=== PATIENT | male | born 1955 | race Caucasian/White ===

== ENCOUNTER 2024-03-11 09:53 | Outpatient (CLI) | payer MEDICARE ==
--- NOTE | 2024-03-11 15:21 | CT Report ---
PROCEDURE: Head WO INDICATIONS: CONCUSSION TECHNIQUE: Noncontrast 4.5 mm thick angled axial sections acquired from the foramen magnum to the vertex. For r adiation dose reduction, the following was used: automated exposure control, adjustment of mA and/or kV according to patient size. COMPARISON: None. FINDINGS: Image quality: Excellent. CSF spaces: Basal cisterns are patent. No extra-axial fluid collections. Ventricles are normal in size and shape. Brain: No midline shift. No intracranial masses or hemorrhage. Selby-white matter interface is norm al. Skull and face: Calvarium and visualized facial bones are intact, without suspicious lesions. Sinuses: Visualized sinuses and mastoids are clear. IMPRESSION: No acute intracranial pathology. No intracranial hemorrhage is seen. Negative for a displaced calvarial fracture. Reviewed by: Vern Casey MD on 03/11/2024 2:19 PM [facility]HAYA Approved by: Vern Casey MD on 03/11/2024 2:19 PM AKJOSE Station ID: [id number]
== END 2024-03-11 09:54 | disposition home or self-care (01) ==
LOC: DI 09:53
PROVIDERS: ATTEND Internal Medicine
DX: S06.0X1A Concussion with loss of consciousness of 30 minutes or less, initial encounter (principal)

== ENCOUNTER 2024-03-23 10:53 | Day surgery (SDC) | payer MEDICARE ==
[2024-03-23] MEDS: LACTATED RINGERS 1,000 ML IV ONE (11:01)
--- NOTE | 2024-03-23 12:04 | ANESTHESIA ---
Pre-Anesthesia VS, & Labs - Diagnosis SCREENING - Procedure COLONOSCOPY Vital Signs: Temp Pulse Resp BP Pulse Ox O2 Flow Rate 36.4 C L 48 L 14 149/79 H 100 03/23/24 11:14 03/23/24 11:14 03/23/24 11:14 03/23/24 11:14 03/23/24 11:14 Height: 6 ft 1 in Weight (kg): 96.8 kg Body Mass Index: 28.1 BMI Classification: Overweight - NPO >8 hours (BOWEL PREP COMPLETED) Home Medications and Allergies Home Medications: Ambulatory Orders Amlodipine Besylate 2.5 mg PO DAILY 03/17/24 Atorvastatin [Lipitor] 20 mg PO QPM 03/17/24 Chlorthalidone 25 mg PO DAILY 03/17/24 Cholecalciferol [Vitamin D3] 25 mcg PO DAILY 03/17/24 Telmisartan 80 mg PO DAILY 03/17/24 Vit A/Vit C/Vit E/Zinc/Copper [Preservision Areds Softgel] 2 each PO DAILY 03/17/24 Amlodipine Besylate 2.5 mg PO DAILY 03/17/24 Atorvastatin [Lipitor] 20 mg PO QPM 03/17/24 Chlorthalidone 25 mg PO DAILY 03/17/24 Cholecalciferol [Vitamin D3] 25 mcg PO DAILY 03/17/24 Telmisartan 80 mg PO DAILY 03/17/24 Vit A/Vit C/Vit E/Zinc/Copper [Preservision Areds Softgel] 2 each PO DAILY 03/17/24 Allergies/Adverse Reactions: Allergies Allergy/AdvReac Type Severity Reaction Status Date / Time No Known Drug Allergies Allergy Verified 03/17/24 15:07 Anes History & Medical History - Anesthetic History Anesthesia Complications: reports: No previous complications Family history of Anesthesia Complications: Denies Family history of Malignant Hyperthermia: Denies - Medical History Cardiovascular: reports: Hypertension, High cholesterol, Arrhythmia, Other Pulmonary: reports: Sleep apnea Gastrointestinal: reports: None Urinary: reports: Benign prostate hypertrophy Neuro: reports: None Musculoskeletal: reports: Osteoarthritis Endocrine/Autoimmune: reports: None Blood Disorders: reports: None Skin: reports: Eczema Psychosocial: reports: No issues indicated History of Cancer?: No - Surgical History General: reports: Colonoscopy, Other Orthopedic: reports: Other Results - EKG Results EKG Comparison: Reviewed EKG, Normal EKG (SINUS BRADYCARDIA) Exam General: Alert, Oriented x3, Cooperative, No acute distress Dental: WNL Mouth Openin Fingerbreadth Neck Mobility: Normal Mallampati classification: II Thyromental Distance: 4-6 cm Mental/Cognitive Status: Alert/Oriented X3, Normal for patient Cognitive Status: Within normal limits Plan Anesthesia Type: General Consent for Procedure(s) Verified and Reviewed: Yes Code Status: Attempt Resuscitation ASA classification: 2-Mild systemic disease Is this case an emergency?: No
[2024-03-23] MEDS ORDERED: PROPOFOL 500 MG/50 ML 500 MG/50 ML VIAL ONE (13:34)
[2024-03-23] MEDS ORDERED: GLYCOPYRROLATE 1 MG/5 ML VIAL ONE (13:42)
[2024-03-23] MEDS: LACTATED RINGERS 300 ML IV ONE (14:30)
[2024-03-23 14:54] VITALS: BP 134/76; O2SAT 100
--- NOTE | 2024-03-23 15:26 | ANESTHESIA POST OP EVALUATION ---
Anesthesia Post Eval - Post Anesthesia Eval Vitals: Last Vital Signs Temp 36.7 C 03/23/24 14:45 Pulse 50 L 03/23/24 14:45 Resp 15 03/23/24 14:45 BP 134/76 H 03/23/24 14:45 Pulse Ox 100 03/23/24 14:45 O2 Flow Rate CV Function Including HR & BP: Stable Pain Control: Satisfactory Nausea & Vomiting: Negative Mental Status: Baseline Respiratory Status: Airway Patent Hydration Status: Satisfactory Anesthesia Complications: None
== END 2024-03-23 10:54 | disposition home or self-care (01) ==
LOC: SDS 10:53
PROVIDERS: ATTEND Surgery
PROC: 3E0H8KZ Introduction of Other Diagnostic Substance into Lower GI, Via Natural or Artificial Opening Endoscopic (ICD-10-PCS; 2024-03-23)
PROC: 0DBN8ZZ Excision of Sigmoid Colon, Via Natural or Artificial Opening Endoscopic (ICD-10-PCS; principal; 2024-03-23 12:00)
DX: Z12.11 Encounter for screening for malignant neoplasm of colon (principal); D12.5 Benign neoplasm of sigmoid colon; K64.1 Second degree hemorrhoids; G47.30 Sleep apnea, unspecified
CPT/HCPCS: 45381; 45385; J7120